=== PATIENT | female | born 1980 | race Caucasian/White ===

== ENCOUNTER 2021-03-10 11:18 | Emergency (ER) | payer BC ==
[~2021-03-10] VITALS: Ht 167.6 cm; Wt 70.5 kg
--- NOTE | 2021-03-10 12:38 | REP ---
INDICATION: CHEST PAIN. COMPARISON: None. TECHNIQUE: AP seated FINDINGS: The lungs are well inflated without definite infiltrate, effusion, atelectasis or mass. No visible pneumothorax. There are few surgical clips overlying the central suprasternal region and right paraspinal region that could be all in the neck base. Heart, mediastinal and hilar contours are normal. The aorta and airway are intact. Bones are unremarkable. No free air under the diaphragm. IMPRESSION: No acute cardiopulmonary change. <Electronically signed by Marcial Mathur > 03/10/21 [id number]
[2021-03-10 13:32] LABS: BASO % 0.4 % (0.0-1.0); EOS % 0.4 % (0.0-3.0); HEMATOCRIT 42.5 % (36.0-47.0); HEMOGLOBIN 14.2 g/dl (12.0-15.5); LYMPH % 11.6 % (24.0-44.0); MEAN CORPUSCULAR HEMOGLOBIN 31.6 pg (27.0-33.0); MEAN CORPUSCULAR HGB CONC 33.4 g/dl (32.0-36.5); MEAN CORPUSCULAR VOLUME 94.7 fl (80.0-96.0); MONO # 0.2 10^3/uL (0.0-0.8); MONO % 2.5 % (2.0-8.0); NEUTROPHILS % 84.6 % (36.0-66.0); PLATELET COUNT, AUTOMATED 341 10^3/uL (150-450); RED BLOOD COUNT 4.49 10^6/uL (4.00-5.40); WHITE BLOOD COUNT 8.3 10^3/uL (4.0-10.0)
[2021-03-10 14:03] LABS: BLOOD UREA NITROGEN 10 MG/DL (7-18); CALCIUM LEVEL 9.1 MG/DL (8.5-10.1); CARBON DIOXIDE LEVEL 27 MEQ/L (21-32); CHLORIDE LEVEL 107 MEQ/L (98-107); CK-MB VALUE MASS 1.4 NG/ML (<3.6); CPK CREATINE PHOSPHOKINASE 198 U/L (26-192); CREATININE FOR GFR 0.86 MG/DL (0.55-1.30); GLOMERULAR FILTRATION RATE > 60.0 (>58); GLUCOSE, FASTING 110 MG/DL (70-100); MB/CK RELATIVE INDEX 0.71 (< OR =4); SODIUM LEVEL 142 MEQ/L (136-145); THYROID STIMULATING HORMONE 0.666 uIU/ML (0.358-3.740); TROPONIN I < 0.02 NG/ML (< 0.10)
[2021-03-10] MEDS ORDERED: ISOVUE-370 76% 100ML VIAL As Ordered ONE (14:22)
--- NOTE | 2021-03-10 15:23 | REP ---
INDICATION: chest pain. COMPARISON: Portable chest 03/10/2021 TECHNIQUE: CT angiogram chest performed following the intravenous administration of 75 cc of Isovue 370. Sagittal and coronal reconstruction images are performed. FINDINGS: Lungs: There is minor dependent atelectasis posteriorly in the mid and lower lung zones. No effusion or acute infiltrate. No pulmonary nodule or mass. No pleural thickening or pneumothorax. Mediastinum: No adenopathy, mass or pneumomediastinum. Pulmonary arteries: No evidence of pulmonary embolism. Mercedes: No adenopathy. Axilla: No adenopathy. Pleura: No effusion. Heart: Not enlarged. Thoracic aorta: No aneurysm or dissection. Upper abdominal structures: Clips from prior cholecystectomy, otherwise unremarkable. No hiatal hernia. Visualized osseous structures: Unremarkable. IMPRESSION: 1. No CT evidence of pulmonary embolism. 2. Minor dependent atelectasis without infiltrate or effusion. No other finding. <Electronically signed by Marcial Mathur > 03/10/21 [id number]
[2021-03-10] MEDS ORDERED: BUPR150T12 (15:30)
[2021-03-10] MEDS ORDERED: QUET50TA3 (15:30)
[2021-03-10] MEDS ORDERED: HYDR-3363 (15:30)
[2021-03-10] MEDS ORDERED: GI COCKTAIL 50ML BTL(HYOSCYAMINE/MAALOX/LIDOCAINE VISCOUS)(1:3:1) PO ONE (15:35)
[2021-03-10 16:00] VITALS: BP 125/64
--- NOTE | 2021-03-11 22:00 | ECGEPIP ---
[facility] - ED Test Date: 2021-03-10 Pat Name: TITA JESUS Department: Room: - Gender: Female State Archivist: LILLIE : 1980 Requested By: Mikel Hoffman Order Number: [id number] Reading MD: Zaria Rocha Measurements Intervals [place] Rate: 80 P: 18 FL: 146 QRS: 53 QRSD: 84 T: 25 QT: 414 QTc: 477 Interpretive Statements Normal sinus rhythm No prior Electronically Signed on 03-11-2021 21:59:47 EDT by Zaria Rocha
== END 2021-03-10 16:06 | disposition home or self-care (01) ==
LOC: M ED 11:18
DX: R07.89 Other chest pain (principal); R06.02 Shortness of breath; R11.2 Nausea with vomiting, unspecified; E03.9 Hypothyroidism, unspecified; F41.9 Anxiety disorder, unspecified; K21.9 Gastro-esophageal reflux disease without esophagitis; Z79.899 Other long term (current) drug therapy; Z88.5 Allergy status to narcotic agent; Z87.891 Personal history of nicotine dependence
CPT/HCPCS: 36415; 71045; 71275; 80048; 82550; 82553; 84443; 84484; 85025; 93005; 93041; 94760; 99285; Q9967